=== PATIENT | female | born 1935 | race Caucasian/White ===

== ENCOUNTER → 2016-08-29 | Outpatient (CLI) | payer MEDICARE, BC ==
[2016-08-29 17:04] LABS: BASOPHIL % 0.5 %; EOSINOPHIL # 0.3 K/uL (0.0-0.5); EOSINOPHIL % 4.2 %; HEMATOCRIT 38.7 % (30.0-46.0); HEMOGLOBIN 12.7 g/dL (10.0-15.0); IMMATURE GRANULOCYTE % 0.3 %; LYMPHOCYTE # 1.6 K/uL (0.8-4.0); LYMPHOCYTE % 21.5 %; MCH 30.8 pg (27.0-34.0); MCHC 32.8 gm/dL (32.0-36.5); MCV 93.7 fl (83.0-98.0); MONOCYTE # 0.5 K/uL (0.0-1.0); MONOCYTE % 6.8 %; MPV 11.7 fl (9.4-12.4); NEUTROPHIL # (ANC) 5.1 K/uL (1.8-7.8); NEUTROPHIL % 66.7 %; NRBC % 0 /100WBC (0-0.00); PLATELET COUNT 160 K/uL (150-450); RBC 4.13 M/uL (3.00-5.00); RDW-CV 13.6 % (11.9-14.6); WBC 7.6 K/uL (4.0-11.0)
[2016-08-29 17:22] LABS: ALBUMIN 3.5 gm/dL (3.5-5.0); ANION GAP 9.5 (10.0-19.0); CALCIUM 8.6 mg/dL (8.5-10.5); CREATININE 1.6 mg/dL (0.5-1.1); POTASSIUM 3.5 mMol/L (3.7-5.1); TOTAL BILIRUBIN 0.6 mg/dL (0.0-1.5); TOTAL PROTEIN 7.4 g/dL (6.0-8.4)
== END ==
LOC: LNHI 16:59
PROVIDERS: Internal Medicine Cardiovascular Disease
DX: I50.32 Chronic diastolic (congestive) heart failure (principal); I10 Essential (primary) hypertension; I48.0 Paroxysmal atrial fibrillation; M79.606 Pain in leg, unspecified

== ENCOUNTER 2016-12-19 13:46 | Emergency (ER) | payer MEDICARE, BC ==
--- NOTE | ~2016-12-19 | ER ---
PATIENT'S NAME: RAJEEV RILEY [facility] AGE: 81 Y [address] ROOM: [place] [address] LOCATION: ED ADMIT DATE: 12/19/2016 ER/Outpatient Report DISCHARGE DATE: 12/19/2016 FAMILY PHYSICIAN: Sen Jackson PA-C ATTENDING PHYSICIAN: Erick Cannon CHIEF COMPLAINT: Shoulder and back pain. HISTORY OF PRESENT ILLNESS: The patient presents for several months of shoulder and back pain. It has gradually gotten worse. No acute changes recently. Her local provider in [place], Dr. Jackson, has nothing further to offer and he recommended she come to [place] for evaluation. She took that to mean that she should come to the ER and that is why she presented here and she is hoping for a cortisone shot to make this better. She notes that there have been no x-rays of her back or her shoulders at all. PAST MEDICAL HISTORY: Documented on the record and reviewed by me. SOCIAL HISTORY: Documented on the record and reviewed by me. MEDICATIONS: Documented on the record and reviewed by me. ALLERGIES: DOCUMENTED ON THE RECORD AND REVIEWED BY ME. REVIEW OF SYSTEMS: All systems reviewed and negative except as noted in HPI. PHYSICAL EXAMINATION: VITAL SIGNS: Blood pressure 134/78, pulse is 82, respiratory rate 16, temp 98.6, and SpO2 is 90. Pain is rated 6/10, max 9.5/10. GENERAL: Age-appropriate female, frail appearance, with severe kyphosis sitting in a wheelchair;otherwise, very pleasant in no acute pain or distress. NEUROLOGIC: Awake and alert. GCS is 15. Mentally sharp. No obvious abnormalities. No asymmetry. HEENT: Normocephalic, atraumatic. Eyes are PERRL. Oropharynx is clear. NECK: Supple. Trachea is midline. CHEST: Heart is regular rate and rhythm with no obvious murmurs. LUNGS: Grossly clear to auscultation. ABDOMEN: Appears benign. PATIENT'S NAME: RAJEEV RILEY [facility] AGE: 81 Y [address] ROOM: [place] [address] LOCATION: [facility] ADMIT DATE: 12/19/2016 ER/Outpatient Report DISCHARGE DATE: 12/19/2016 FAMILY PHYSICIAN: Sen Jackson PA-C ATTENDING PHYSICIAN: Erick Cannon BACK: Tender to palpation over the scapular areas. No midline tenderness at all. EXTREMITIES: Grossly unremarkable. The patient has pain with range of motion of the shoulders. SKIN: Appears grossly intact. LABS AND X-RAYS: Plain films of the chest and bilateral shoulders were obtained. Significant arthritis most prominent on the left-side with near complete erosion of the entire humeral head. There is marked kyphosis on the x-rays as well. CBC with no appreciable abnormalities, ESR is 23, CRP is 0.34. CMS with no obvious abnormalities other than a slight elevation of creatinine at 1.5 and mild hypokalemia at 3.2, unsure of baseline. The patient states she does have a history of problems with her kidneys as well. 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 EMERGENCY DEPARTMENT COURSE: The patient was seen and evaluated as above. I explained to her that I do not offer cortisone injections in the emergency department. Plain films reveal severe degenerative changes of the shoulders bilateral and kyphosis. Her shoulders are her biggest complaint. I referred her to Orthopedics for further evaluation of same. She was given contact information for local orthopaedic clinics. She is to contact them and follow up as needed. She was given a prescription for some hydrocortisone cream at her request. MD BETTY GARCIA/mukesh /[id number] d: 12/20/16 0842 t: 12/27/16 1013, OUTPATIENT REPORT
[2016-12-19 15:13] LABS: BASOPHIL # 0.1 K/uL (0.0-0.2); BASOPHIL % 0.6 %; EOSINOPHIL # 0.1 K/uL (0.0-0.5); EOSINOPHIL % 1.3 %; HEMATOCRIT 43.2 % (30.0-46.0); HEMOGLOBIN 14.5 g/dL (10.0-15.0); IMMATURE GRANULOCYTE % 0.3 %; LYMPHOCYTE # 1.4 K/uL (0.8-4.0); MCH 31.9 pg (27.0-34.0); MCHC 33.6 gm/dL (32.0-36.5); MCV 94.9 fl (83.0-98.0); MONOCYTE # 0.5 K/uL (0.0-1.0); MONOCYTE % 5.7 %; MPV 11.9 fl (9.4-12.4); NEUTROPHIL # (ANC) 7.1 K/uL (1.8-7.8); NEUTROPHIL % 77.1 %; NRBC % 0 /100WBC (0-0.00); PLATELET COUNT 169 K/uL (150-450); RBC 4.55 M/uL (3.00-5.00); RDW-CV 14.1 % (11.9-14.6); WBC 9.3 K/uL (4.0-11.0)
[2016-12-19 15:31] LABS: ALBUMIN 3.5 gm/dL (3.5-5.0); ANION GAP 10.2 (10.0-19.0); CALCIUM 8.6 mg/dL (8.5-10.5); CREATININE 1.5 mg/dL (0.5-1.1); POTASSIUM 3.2 mMol/L (3.7-5.1); TOTAL BILIRUBIN 0.6 mg/dL (0.0-1.5); TOTAL PROTEIN 7.7 g/dL (6.0-8.4)
== END 2016-12-19 16:43 | disposition disaster alternative care site (69) ==
LOC: GMED 13:46
PROVIDERS: Emergency Medicine
DX: M40.204 Unspecified kyphosis, thoracic region (principal); M25.512 Pain in left shoulder; M25.511 Pain in right shoulder; I10 Essential (primary) hypertension; Z88.6 Allergy status to analgesic agent; Z88.5 Allergy status to narcotic agent; Z95.0 Presence of cardiac pacemaker; Z98.49 Cataract extraction status, unspecified eye; Z98.890 Other specified postprocedural states; Z79.891 Long term (current) use of opiate analgesic; Z79.899 Other long term (current) drug therapy